=== PATIENT | female | born 1970 | race Caucasian/White ===

== ENCOUNTER 2016-10-29 11:50 | Emergency (ER) | payer OTHER ==
--- NOTE | 2016-10-29 13:06 | REP ---
AP view of the pelvis: Single view. History: Trauma. Findings: The bony pelvic ring is intact. No hip or pelvic fracture is seen. No sacral fracture is noted. Impression: Negative AP view of the pelvis. Signed by Trace Mclain MD 10/29/2016 04:21 P
--- NOTE | 2016-10-29 13:06 | REP ---
LUMBAR SPINE SERIES: Five views. HISTORY: Trauma. FINDINGS: Five views of the lumbar spine are compared with the prior study from January 12, 2007. Lumbar vertebral body heights are preserved. No fracture or collapse is seen. There is minimal disc space narrowing at L5-S1 and minimal discogenic spurring is seen at L3-4. Pedicles and posterior elements are intact. Psoas margins and flank stripes are intact. Sacrum and SI joints are intact. There is a calcification projecting in the right renal silhouettes measuring 4 mm in greatest diameter consistent with an intrarenal stone. There is vascular calcification in a normal caliber aorta. IMPRESSION: Minimal degenerative disc changes. Intrarenal nephrolithiasis suspected on the right. Clips in the right upper quadrant. No traumatic abnormality noted. Signed by Trace Mclain MD 10/29/2016 04:21 P
[2016-10-29] MEDS ORDERED: PERCOCET 5MG/325MG TAB As Ordered ONE (14:43)
--- NOTE | 2016-10-29 14:56 | EDDOCDS ---
Physician Documentation [facility] Name: Jaleesa Hidalgo Age: 46 yrs Sex: Female : 1970 Arrival Date: 10/29/2016 Time: 11:50 Bed Triage 3 Private MD: Jose Singleton G Disposition: 10/29/16 14:47 Discharged to Home/Self Care. Impression: Low back pain - Acute, Pain in right hip, Fall (on) (from) other stairs and steps. - Condition is Stable. - Discharge Instructions: Back Pain, Adult, [id number]-[id number], Hip Pain, Fall Prevention and Home Safety, Uaob-vq-[id number]. - Prescriptions for Ibuprofen 800 mg Oral Tablet - take 1 tablet by ORAL route every 8 hours As needed take with food; 30 tablet. Percocet 5- 325 mg Oral Tablet - take 1 tablet by ORAL route every 6 hours As needed MDD: 4 tabs; 10 tablet. Zanaflex 4 mg Oral Tablet - take 1 tablet by ORAL route At bedtime As needed Will cause drowsiness, do not take while driving/operating heavy machinery.; 20 tablet. Prednisone 20 mg Oral Tablet - take 3 tablet by ORAL route once daily for 5 days; 15 tablet. - Medication Reconciliation, Local Pharmacy Hours, Work Release Form - 3 day form. - Follow up: Jose Singleton; When: 1 - 2 days; Reason: Recheck today's complaints, Continuance of care. Follow up: Emergency Department; Reason: Worsening of conditions. Follow up: [facility]; When: Call to arrange an appointment; Reason: Further diagnostic work-up, Recheck today's complaints, Continuance of care. - Problem is new. - Symptoms have improved. Historical: - Allergies: Aspirin (Anaphylaxis); PENICILLINS (Anaphylaxis); - Home Meds: 1. atorvastatin 20 mg oral tab 1 tab once daily 2. venlafaxine 75 mg oral cp24 1 cap once daily 3. Fioricet 50-300-40 mg Oral cap 1 cap every 4 hours prn 4. divalproex 500 mg oral TbEC 1 tab 2 times per day - PMHx: Bronchitis; Hypercholesterolemia; - PSHx: ear surgery; Cholecystectomy; - Social history: Smoking status: Patient uses tobacco products, current every day smoker. No barriers to communication noted, The patient speaks fluent Dominican, Speaks appropriately for age. - Family history: Not pertinent. - : The pt / caregiver states he / she is not on anticoagulants. Home medication list is obtained from the patient. - Exposure Risk Screening:: None identified. 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 6 in. (167.64 cm) (R); Pain 8/10; 12:09 BP 106 / 52 Sitting; Pulse 87; srm 11:52 Body Mass Index 22.60 (63.50 kg, 167.64 cm) gr2 MDM: 12:14 Pelvis Ordered. EDMS 12:15 Spine. Lumbosacral, Complete Ordered. EDMS 13:22 [facility] Payment Agreement was scanned into [employer] and attached to record. 5 14:22 Financial registration complete. jp5 14:38 oxyCODONE-acetaminophen 5 mg-325 mg 1 tabs PO once ordered. ef1 14:38 Ice Pack ordered. ef1 Administered Medications: 14:44 Drug: oxyCODONE-acetaminophen 1 tabs [oxycodone-acetaminophen 5 mg-325 mg tablet (1 srm tabs)] Route: PO; Signatures: Dispatcher [employer] EDMS Maolu Wang RN RN srm Pat Dhillon PA-C PANany ef1 Samira Lara RN RN 1 Carley Garduno jp5 The chart was reviewed and I authenticate all verbal orders and agree with the evaluation and treatment provided.Corrections: (The following items were deleted from the chart) 14:44 12:04 PMHx: Thyroid problem; srm srm Attachments: 13:22 [facility] Payment Agreement jp5 MTDD
--- NOTE | 2016-10-29 14:56 | EDDOCDS ---
Nurse's Notes [facility] Name: aJleesa Hidalgo Age: 46 yrs Sex: Female : 1970 Arrival Date: 10/29/2016 Time: 11:50 Bed Triage 3 Private MD: Jose Singleton G Diagnosis: Low back pain-Acute;Pain in right hip;Fall (on) (from) other stairs and steps Presentation: 10/29 12:03 Presenting complaint: Patient states: fell down stairs last night- low back, pelvis and srm tail bone pain. walks without assist. couldn't sleep last night. no numbness or tingling down legs. Adult Sepsis Screening: The patient does not have new or worsening altered mentation. Patient's respiratory rate is less than 22. Systolic blood pressure is greater than 100. Patient has a qSOFA score of 0- Negative Sepsis Screen. Suicide/Homicide risk assessment- the patient denies having any suicidal and/or homicidal ideations and does not present with any other emotional, behavioral or mental health complaints. 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 Transition of care: patient was not received from another setting of care. 12:03 Acuity: CARMELO Level 3 srm 12:03 Method Of Arrival: Walkin/Carried/Asstd srm Triage Assessment: 12:04 General: Appears uncomfortable, Behavior is appropriate for age, cooperative. Pain: srm Pain currently is 10 out of 10 on a pain scale. HIV screening NA for this visit Offered previously. Musculoskeletal: Reports low back, tailbone and pelvis pain. 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 atorvastatin 20 mg oral tab 1 tab once daily 2. venlafaxine 75 mg oral cp24 1 cap once daily 3. Fioricet 50-300-40 mg Oral cap 1 cap every 4 hours prn 4. divalproex 500 mg oral TbEC 1 tab 2 times per day - PMHx: Bronchitis; Hypercholesterolemia; - PSHx: ear surgery; Cholecystectomy; - Social history: Smoking status: Patient uses tobacco products, current every day smoker. No barriers to communication noted, The patient speaks fluent Lao, Speaks appropriately for age. - Family history: Not pertinent. - : The pt / caregiver states he / she is not on anticoagulants. Home medication list is obtained from the patient. - Exposure Risk Screening:: None identified. Screenin:44 Screening information is obtained from the patient. Fall risk: No risks identified. srm Assistance ADL's: requires no assistance with activities of daily living. Abuse/DV Screen: The patient / caregiver reports he/she is: not in a situation that causes fear, pain or injury. Nutritional screening: No deficits noted. Advance Directives: Currently, there is no health care proxy. There is no active DNR order. home support is adequate. Assessment: 12:13 General: spoke with dr pritchett regarding pt's c/o - orders received. srm 14:45 General: Appears in no apparent distress, Behavior is appropriate for age, cooperative. srm Respiratory: No deficits noted. Musculoskeletal: Circulation, motion, and sensation intact Capillary refill < 3 seconds in bilateral fingers. Musculoskeletal: Reports low back pain, tailbone pain. 14:54 General: Appears in no apparent distress. Pain: Location: left hip. Respiratory: No hs1 deficits noted. Vital Signs: 11:52 BP 83 / 53; Pulse 89; Resp 18 S; Temp 97.7(O); Pulse Ox 96% on R/A; Weight 63.5 kg (R); gr2 Height 5 ft. 6 in. (167.64 cm) (R); Pain 8/10; 12:09 BP 106 / 52 Sitting; Pulse 87; srm 11:52 Body Mass Index 22.60 (63.50 kg, 167.64 cm) gr2 Vitals: 11:52 Log In Time: October 29, 2016 at 11:52. gr2 ED Course: 11:51 Patient visited by Joao Galeas. gr2 11:51 Jose Singleton is Private Physician. gr2 11:51 Patient moved to Waiting gr2 11:53 Patient visited by Joao Galeas. gr2 11:53 Patient moved to Pre RCE gr2 12:04 Triage Initiated srm 13:22 [facility] Payment Agreement was scanned into [employer] and attached to record. jp5 13:28 Pelvis Returned. EDMS 13:29 Spine. Lumbosacral, Complete Returned. EDMS 13:53 Patient moved to Triage 3 jrd 14:11 Pat Dhillon [facility]-C [facility] ef1 14:11 Jadon Pritchett MD is Attending Physician. ef1 14:11 Patient visited by Pat Dhillon PA-C. ef1 14:38 Patient visited by Pat Dhillon PA-C. ef1 14:44 The patient / caregiver is instructed regarding the plan of care and ED course. Patient srm has correct armband on for positive identification. 14:45 Patient visited by Malou Wang RN. [facility] 14:47 Jose Singleton is Referral Physician. ef1 14:47 [facility]. ef1 14:50 Patient moved to TR2 jrd 14:50 Patient moved to Triage 3 jrd 14:55 No IV's were initiated during this patient's visit. No procedures done that require hs1 assistance. Administered Medications: 14:44 Drug: oxyCODONE-acetaminophen 1 tabs [oxycodone-acetaminophen 5 mg-325 mg tablet (1 srm tabs)] Route: PO; Order Results: Radiology Order: Pelvis Test: Pelvis REASON FOR EXAMINATION: Trauma; AP view of the pelvis: Single view.; ; History: Trauma.; ; Findings: The bony pelvic ring is intact. No hip or pelvic fracture is seen.; No sacral fracture is noted.; ; Impression:; ; Negative AP view of the pelvis.; ; ; ; ; Unreviewed; Radiology Order: Spine. Lumbosacral, Complete Test: Spine. Lumbosacral, Complete REASON FOR EXAMINATION: Trauma; LUMBAR SPINE SERIES: Five views.; ; HISTORY: Trauma.; ; FINDINGS: Five views of the lumbar spine are compared with the prior study from; January 12, 2007. Lumbar vertebral body heights are preserved. No fracture or; collapse is seen. There is minimal disc space narrowing at L5-S1 and minimal; discogenic spurring is seen at L3-4. Pedicles and posterior elements are intact.; Psoas margins and flank stripes are intact. Sacrum and SI joints are intact.; There is a calcification projecting in the right renal silhouettes measuring 4 mm; in greatest diameter consistent with an intrarenal stone. There is vascular; calcification in a normal caliber aorta.; ; IMPRESSION:; Minimal degenerative disc changes. Intrarenal nephrolithiasis suspected on the; right. Clips in the right upper quadrant. No traumatic abnormality noted.; ; ; ; ; Unreviewed; Outcome: 14:47 Discharge ordered by Provider. ef1 14:54 The following High Risk Discharge criteria are identified: None. Discharged to home hs1 ambulatory, with friend. 14:54 Discharge Assessment: Patient awake, alert and oriented x 3. No cognitive and/or hs1 functional deficits noted. Patient verbalized understanding of disposition instructions. patient administered narcotics - yes. Pt provided with safe discharge. Condition: stable. Discharge instructions given to patient, Instructed on discharge instructions, follow up and referral plans. medication usage, Demonstrated understanding of instructions, medications, Pt was receptive of discharge instructions/ teaching. Prescriptions given X 4. No special radiology studies were completed. Property sent home with patient. 14:55 Patient left the ED. hs1 Signatures: Dispatcher [employer] EDMS Malou Wang, RN RN Pat Luna, PA-C PA-C ef1 Samira Lara RN RN hs1 Joao Galeas gr2 Leland Palma PCA CERTIFIED FRAUD EXAMINER d Carley Garduno jp5 Corrections: (The following items were deleted from the chart) 14:44 12:04 PMHx: Thyroid problem; srm srm MTDD
--- NOTE | 2016-10-31 15:56 | EDDOCDS ---
Physician Documentation [facility] Name: Jaleesa Hidalgo Age: 46 yrs Sex: Female : 1970 Arrival Date: 10/29/2016 Time: 11:50 Bed Triage 3 Private MD: Jose Singleton G Disposition: 10/29/16 14:47 Discharged to Home/Self Care. Impression: Low back pain - Acute, Pain in right hip, Fall (on) (from) other stairs and steps. - Condition is Stable. - Discharge Instructions: Back Pain, Adult, Qydo-mx-Gyte, Hip Pain, Fall Prevention and Home Safety, Mluz-ol-Aigt. - Prescriptions for Ibuprofen 800 mg Oral Tablet - take 1 tablet by ORAL route every 8 hours As needed take with food; 30 tablet. Percocet 5- 325 mg Oral Tablet - take 1 tablet by ORAL route every 6 hours As needed MDD: 4 tabs; 10 tablet. Zanaflex 4 mg Oral Tablet - take 1 tablet by ORAL route At bedtime As needed Will cause drowsiness, do not take while driving/operating heavy machinery.; 20 tablet. Prednisone 20 mg Oral Tablet - take 3 tablet by ORAL route once daily for 5 days; 15 tablet. - Medication Reconciliation, Local Pharmacy Hours, Work Release Form - 3 day form. - Follow up: Jose Singleton; When: 1 - 2 days; Reason: Recheck today's complaints, Continuance of care. Follow up: Emergency Department; Reason: Worsening of conditions. Follow up: [facility]; When: Call to arrange an appointment; Reason: Further diagnostic work-up, Recheck today's complaints, Continuance of care. - Problem is new. - Symptoms have improved. Historical: - Allergies: Aspirin (Anaphylaxis); PENICILLINS (Anaphylaxis); - Home Meds: 1. atorvastatin 20 mg oral tab 1 tab once daily 2. venlafaxine 75 mg oral cp24 1 cap once daily 3. Fioricet 50-300-40 mg Oral cap 1 cap every 4 hours prn 4. divalproex 500 mg oral TbEC 1 tab 2 times per day - PMHx: Bronchitis; Hypercholesterolemia; - PSHx: ear surgery; Cholecystectomy; - Social history: Smoking status: Patient uses tobacco products, current every day smoker. No barriers to communication noted, The patient speaks fluent Mauritian, Speaks appropriately for age. - Family history: Not pertinent. - : The pt / caregiver states he / she is not on anticoagulants. Home medication list is obtained from the patient. - Exposure Risk Screening:: None identified. 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 6 in. (167.64 cm) (R); Pain 8/10; 12:09 BP 106 / 52 Sitting; Pulse 87; srm 11:52 Body Mass Index 22.60 (63.50 kg, 167.64 cm) gr2 MDM: 12:14 Pelvis Ordered. EDMS 12:15 Spine. Lumbosacral, Complete Ordered. EDMS 13:22 [facility] Payment Agreement was scanned into [employer] and attached to record. 5 14:22 Financial registration complete. jp5 14:38 oxyCODONE-acetaminophen 5 mg-325 mg 1 tabs PO once ordered. ef1 14:38 Ice Pack ordered. ef1 15:55 T-Sheet-- Draft Copy was scanned into [employer] and attached to record. klr 10/30 10:16 Radiology Report was scanned into [employer] and attached to record. gb Administered Medications: 10/29 14:44 Drug: oxyCODONE-acetaminophen 1 tabs [oxycodone-acetaminophen 5 mg-325 mg tablet (1 srm tabs)] Route: PO; Signatures: Dispatcher [employer] EDMS Malou Wang, RN RN srm Criss Prince, Reg Reg gb Pat Dhillon, PA-C PA-C ef1 Samira Lara, JONELLE RN hs1 Carley Garduno 5 Nisha Valenzuela The chart was reviewed and I authenticate all verbal orders and agree with the evaluation and treatment provided.Corrections: (The following items were deleted from the chart) 14:44 12:04 PMHx: Thyroid problem; srm srm Attachments: 13:22 [facility] Payment Agreement jp5 15:55 T-Sheet-- Draft Copy klr Chart Complete MTDD
--- NOTE | 2016-10-31 15:56 | EDDOCDS ---
Nurse's Notes [facility] Name: Jaleesa Hidalgo Age: 46 yrs Sex: Female : 1970 Arrival Date: 10/29/2016 Time: 11:50 Bed Triage 3 Private MD: Jose Singleton G Diagnosis: Low back pain-Acute;Pain in right hip;Fall (on) (from) other stairs and steps Presentation: 10/29 12:03 Presenting complaint: Patient states: fell down stairs last night- low back, pelvis and srm tail bone pain. walks without assist. couldn't sleep last night. no numbness or tingling down legs. Adult Sepsis Screening: The patient does not have new or worsening altered mentation. Patient's respiratory rate is less than 22. Systolic blood pressure is greater than 100. Patient has a qSOFA score of 0- Negative Sepsis Screen. Suicide/Homicide risk assessment- the patient denies having any suicidal and/or homicidal ideations and does not present with any other emotional, behavioral or mental health complaints. 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 Transition of care: patient was not received from another setting of care. 12:03 Acuity: CARMELO Level 3 srm 12:03 Method Of Arrival: Walkin/Carried/Asstd srm Triage Assessment: 12:04 General: Appears uncomfortable, Behavior is appropriate for age, cooperative. Pain: srm Pain currently is 10 out of 10 on a pain scale. HIV screening NA for this visit Offered previously. Musculoskeletal: Reports low back, tailbone and pelvis pain. 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 atorvastatin 20 mg oral tab 1 tab once daily 2. venlafaxine 75 mg oral cp24 1 cap once daily 3. Fioricet 50-300-40 mg Oral cap 1 cap every 4 hours prn 4. divalproex 500 mg oral TbEC 1 tab 2 times per day - PMHx: Bronchitis; Hypercholesterolemia; - PSHx: ear surgery; Cholecystectomy; - Social history: Smoking status: Patient uses tobacco products, current every day smoker. No barriers to communication noted, The patient speaks fluent Vietnamese, Speaks appropriately for age. - Family history: Not pertinent. - : The pt / caregiver states he / she is not on anticoagulants. Home medication list is obtained from the patient. - Exposure Risk Screening:: None identified. Screenin:44 Screening information is obtained from the patient. Fall risk: No risks identified. srm Assistance ADL's: requires no assistance with activities of daily living. Abuse/DV Screen: The patient / caregiver reports he/she is: not in a situation that causes fear, pain or injury. Nutritional screening: No deficits noted. Advance Directives: Currently, there is no health care proxy. There is no active DNR order. home support is adequate. Assessment: 12:13 General: spoke with dr pritchett regarding pt's c/o - orders received. srm 14:45 General: Appears in no apparent distress, Behavior is appropriate for age, cooperative. srm Respiratory: No deficits noted. Musculoskeletal: Circulation, motion, and sensation intact Capillary refill < 3 seconds in bilateral fingers. Musculoskeletal: Reports low back pain, tailbone pain. 14:54 General: Appears in no apparent distress. Pain: Location: left hip. Respiratory: No hs1 deficits noted. Vital Signs: 11:52 BP 83 / 53; Pulse 89; Resp 18 S; Temp 97.7(O); Pulse Ox 96% on R/A; Weight 63.5 kg (R); gr2 Height 5 ft. 6 in. (167.64 cm) (R); Pain 8/10; 12:09 BP 106 / 52 Sitting; Pulse 87; srm 11:52 Body Mass Index 22.60 (63.50 kg, 167.64 cm) gr2 Vitals: 11:52 Log In Time: October 29, 2016 at 11:52. gr2 ED Course: 11:51 Patient visited by Joao Galeas. gr2 11:51 Jose Singleton is Private Physician. gr2 11:51 Patient moved to Waiting gr2 11:53 Patient visited by Joao Galeas. gr2 11:53 Patient moved to Pre RCE gr2 12:04 Triage Initiated srm 13:22 [facility] Payment Agreement was scanned into [employer] and attached to record. jp5 13:28 Pelvis Returned. EDMS 13:29 Spine. Lumbosacral, Complete Returned. EDMS 13:53 Patient moved to Triage 3 jrd 14:11 Pat Dhillon PA-C is [facility]. ef1 14:11 Jadon Pritchett MD is Attending Physician. ef1 14:11 Patient visited by Pat Dhillon PA-C. ef1 14:38 Patient visited by Pat Dhillon PA-C. ef1 14:44 The patient / caregiver is instructed regarding the plan of care and ED course. Patient srm has correct armband on for positive identification. 14:45 Patient visited by Malou Wang RN. srm 14:47 Jose Singleton is Referral Physician. ef1 14:47 [facility]. ef1 14:50 Patient moved to TR2 jrd 14:50 Patient moved to Triage 3 jrd 14:55 No IV's were initiated during this patient's visit. No procedures done that require hs1 assistance. 15:55 T-Sheet-- Draft Copy was scanned into [employer] and attached to record. r 10/30 10:16 Radiology Report was scanned into [employer] and attached to record. gb Administered Medications: 10/29 14:44 Drug: oxyCODONE-acetaminophen 1 tabs [oxycodone-acetaminophen 5 mg-325 mg tablet (1 srm tabs)] Route: PO; Order Results: Radiology Order: Pelvis Test: Pelvis REASON FOR EXAMINATION: Trauma; AP view of the pelvis: Single view.; ; History: Trauma.; ; Findings: The bony pelvic ring is intact. No hip or pelvic fracture is seen.; No sacral fracture is noted.; ; Impression:; ; Negative AP view of the pelvis.; ; ; Signed by; Trace Mclain MD 10/29/2016 04:21 P; Radiology Order: Spine. Lumbosacral, Complete Test: Spine. Lumbosacral, Complete REASON FOR EXAMINATION: Trauma; LUMBAR SPINE SERIES: Five views.; ; HISTORY: Trauma.; ; FINDINGS: Five views of the lumbar spine are compared with the prior study from; January 12, 2007. Lumbar vertebral body heights are preserved. No fracture or; collapse is seen. There is minimal disc space narrowing at L5-S1 and minimal; discogenic spurring is seen at L3-4. Pedicles and posterior elements are intact.; Psoas margins and flank stripes are intact. Sacrum and SI joints are intact.; There is a calcification projecting in the right renal silhouettes measuring 4 mm; in greatest diameter consistent with an intrarenal stone. There is vascular; calcification in a normal caliber aorta.; ; IMPRESSION: Minimal degenerative disc changes. Intrarenal nephrolithiasis; suspected on the right. Clips in the right upper quadrant. No traumatic; abnormality noted.; ; ; Signed by; Trace Mclain MD 10/29/2016 04:21 P; Outcome: 14:47 Discharge ordered by Provider. ef1 14:54 The following High Risk Discharge criteria are identified: None. Discharged to home hs1 ambulatory, with friend. 14:54 Discharge Assessment: Patient awake, alert and oriented x 3. No cognitive and/or hs1 functional deficits noted. Patient verbalized understanding of disposition instructions. patient administered narcotics - yes. Pt provided with safe discharge. Condition: stable. Discharge instructions given to patient, Instructed on discharge instructions, follow up and referral plans. medication usage, Demonstrated understanding of instructions, medications, Pt was receptive of discharge instructions/ teaching. Prescriptions given X 4. No special radiology studies were completed. Property sent home with patient. 14:55 Patient left the ED. hs1 Signatures: Dispatcher [employer] EDMS Malou Wang, RN RN srm Cirss Prince, Reg Reg Pat Crystal, PA-C PA-C ef1 Samira Lara, RN RN hs1 Joao Galeas gr2 Leland Palma PCA PCA jrd Price, Jennalee jp5 Redder, Kathie klr Corrections: (The following items were deleted from the chart) 14:44 12:04 PMHx: Thyroid problem; srm srm Chart Complete MTDD
--- NOTE | 2016-10-31 15:56 | EDDOCDS ---
Physician Documentation [facility] Name: Jaleesa Hidalgo Age: 46 yrs Sex: Female : 1970 Arrival Date: 10/29/2016 Time: 11:50 Bed Triage 3 Private MD: Jose Singleton G Disposition: 10/29/16 14:47 Discharged to Home/Self Care. Impression: Low back pain - Acute, Pain in right hip, Fall (on) (from) other stairs and steps. - Condition is Stable. - Discharge Instructions: Back Pain, Adult, [id number], Hip Pain, Fall Prevention and Home Safety, Ixyn-go-Evww. - Prescriptions for Ibuprofen 800 mg Oral Tablet - take 1 tablet by ORAL route every 8 hours As needed take with food; 30 tablet. Percocet 5- 325 mg Oral Tablet - take 1 tablet by ORAL route every 6 hours As needed MDD: 4 tabs; 10 tablet. Zanaflex 4 mg Oral Tablet - take 1 tablet by ORAL route At bedtime As needed Will cause drowsiness, do not take while driving/operating heavy machinery.; 20 tablet. Prednisone 20 mg Oral Tablet - take 3 tablet by ORAL route once daily for 5 days; 15 tablet. - Medication Reconciliation, Local Pharmacy Hours, Work Release Form - 3 day form. - Follow up: Jose Singleton; When: 1 - 2 days; Reason: Recheck today's complaints, Continuance of care. Follow up: Emergency Department; Reason: Worsening of conditions. Follow up: [facility]; When: Call to arrange an appointment; Reason: Further diagnostic work-up, Recheck today's complaints, Continuance of care. - Problem is new. - Symptoms have improved. Historical: - Allergies: Aspirin (Anaphylaxis); PENICILLINS (Anaphylaxis); - Home Meds: 1. atorvastatin 20 mg oral tab 1 tab once daily 2. venlafaxine 75 mg oral cp24 1 cap once daily 3. Fioricet 50-300-40 mg Oral cap 1 cap every 4 hours prn 4. divalproex 500 mg oral TbEC 1 tab 2 times per day - PMHx: Bronchitis; Hypercholesterolemia; - PSHx: ear surgery; Cholecystectomy; - Social history: Smoking status: Patient uses tobacco products, current every day smoker. No barriers to communication noted, The patient speaks fluent Afghan, Speaks appropriately for age. - Family history: Not pertinent. - : The pt / caregiver states he / she is not on anticoagulants. Home medication list is obtained from the patient. - Exposure Risk Screening:: None identified. 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 6 in. (167.64 cm) (R); Pain 8/10; 12:09 BP 106 / 52 Sitting; Pulse 87; srm 11:52 Body Mass Index 22.60 (63.50 kg, 167.64 cm) gr2 MDM: 12:14 Pelvis Ordered. EDMS 12:15 Spine. Lumbosacral, Complete Ordered. EDMS 13:22 [facility] Payment Agreement was scanned into [employer] and attached to record. 5 14:22 Financial registration complete. jp5 14:38 oxyCODONE-acetaminophen 5 mg-325 mg 1 tabs PO once ordered. ef1 14:38 Ice Pack ordered. ef1 15:55 T-Sheet-- Draft Copy was scanned into [employer] and attached to record. klr 10/30 10:16 Radiology Report was scanned into [employer] and attached to record. gb Administered Medications: 10/29 14:44 Drug: oxyCODONE-acetaminophen 1 tabs [oxycodone-acetaminophen 5 mg-325 mg tablet (1 srm tabs)] Route: PO; Signatures: Dispatcher [employer] EDMS Malou Wang, RN RN srm Criss Prince, Reg Reg gb Pat Dhillon, PA-C PA-C ef1 Samira Lara, JONELLE RN hs1 Carley Garduno 5 Nisha Valenzuela The chart was reviewed and I authenticate all verbal orders and agree with the evaluation and treatment provided.Corrections: (The following items were deleted from the chart) 14:44 12:04 PMHx: Thyroid problem; srm srm Attachments: 13:22 [facility] Payment Agreement jp5 15:55 T-Sheet-- Draft Copy klr Chart Complete MTDD
== END 2016-10-29 14:55 | disposition home or self-care (01) ==
LOC: M ED 11:50
DX: M54.5 Low back pain (principal); M25.551 Pain in right hip; J40 Bronchitis, not specified as acute or chronic; E78.00 Pure hypercholesterolemia, unspecified; F17.210 Nicotine dependence, cigarettes, uncomplicated; Z79.899 Other long term (current) drug therapy; Z88.6 Allergy status to analgesic agent; Z88.0 Allergy status to penicillin

== ENCOUNTER 2017-03-03 22:06 | Emergency (ER) | payer OTHER ==
[~2017-03-03] VITALS: Ht 167.6 cm; Wt 64.4 kg
[2017-03-03 22:06] VITALS: BP 104/49
[2017-03-03] MEDS ORDERED: VENL75CA47 PO (22:21)
[2017-03-03] MEDS ORDERED: ATOR1TAB21 PO (22:21)
[2017-03-03] MEDS ORDERED: ESTR625TA PO (22:21)
[2017-03-04] MEDS ORDERED: ROBA500T PO (00:49)
[2017-03-04] MEDS ORDERED: IBUP80TA PO (00:49)
[2017-03-04] MEDS ORDERED: IBUPROFEN 800 MG TAB PO ONE (01:00)
[2017-03-04] MEDS ORDERED: METHOCARBAMOL 500 MG TAB PO ONE (01:00)
== END 2017-03-04 00:56 | disposition home or self-care (01) ==
LOC: M ED 23:29
DX: S39.012A Strain of muscle, fascia and tendon of lower back, initial encounter (principal); X50.9XXA Other and unspecified overexertion or strenuous movements or postures, initial encounter; Y92.89 Other specified places as the place of occurrence of the external cause; Y93.89 Activity, other specified; Y99.8 Other external cause status; E78.9 Disorder of lipoprotein metabolism, unspecified; F17.210 Nicotine dependence, cigarettes, uncomplicated; Z79.899 Other long term (current) drug therapy; Z88.0 Allergy status to penicillin; Z88.6 Allergy status to analgesic agent

== ENCOUNTER 2017-06-10 19:32 | Emergency (ER) | payer OTHER, SELFPAY ==
[~2017-06-10] VITALS: Ht 167.6 cm; Wt 69.0 kg
[~2017-06-10 19:32] MED LIST: ATOR1TAB21 PO; ESTR625TA PO; IBUP80TA PO; ROBA500T PO; VENL75CA47 PO
[2017-06-10] MEDS ORDERED: CHAN1PAK9 (19:51)
[2017-06-10] MEDS ORDERED: ACETAMINOPHEN 325 MG TAB PO ONE (23:30)
[2017-06-10] MEDS ORDERED: ONDANSETRON 4 MG ORAL DISINTEGRATING TAB (S0181) PO ONE (23:30)
[2017-06-11] MEDS ORDERED: ZOFR4TAB3 PO (00:01)
[2017-06-11 00:10] VITALS: BP 118/65
--- NOTE | 2017-06-11 07:34 | REP ---
Clinical: Fever . Comparison: 09/10/2016 . Technique: PA and lateral. Findings: The mediastinum and cardiac silhouette are normal. The lung acevedo are clear and without acute consolidation, effusion, or pneumothorax. The skeletal structures are intact and normal. Impression: 1. No acute cardiopulmonary process. Signed by Terry Mcginnis MD 06/11/2017 07:25 A
== END 2017-06-11 00:11 | disposition home or self-care (01) ==
LOC: M ED 19:32
DX: B34.9 Viral infection, unspecified (principal); F33.9 Major depressive disorder, recurrent, unspecified; F17.210 Nicotine dependence, cigarettes, uncomplicated; Z79.899 Other long term (current) drug therapy; Z88.0 Allergy status to penicillin; Z88.8 Allergy status to other drugs, medicaments and biological substances

== ENCOUNTER → 2017-10-29 | Outpatient (REF) | payer MEDICAID ==
[2017-10-29 23:02] LABS: INFLUENZA A AMPLIFICATION NEGATIVE (NEGATIVE); INFLUENZA B AMPLIFICATION NEGATIVE (NEGATIVE); RSV AMPLIFICATION NEGATIVE (NEGATIVE)
== END ==
LOC: M LAB REF 09:41
DX: J11.1 Influenza due to unidentified influenza virus with other respiratory manifestations (principal)

== ENCOUNTER → 2018-08-07 | Outpatient (REF) | payer OTHER | LOC: M LAB REF 16:41 | DX: J02.9 Acute pharyngitis, unspecified (principal) ==

== ENCOUNTER → 2018-11-26 | Outpatient (REF) | payer OTHER ==
[~2018-11-26] MED LIST changes: +CHAN1PAK13; +ZOFR4TAB14 PO
== END ==
LOC: M SFHCLERA 12:13
PROVIDERS: ATTEND Nurse Practitioner Family
DX: R53.81 Other malaise (principal)

== ENCOUNTER 2019-06-29 11:33 | Emergency (ER) | payer MEDICAID, OTHER ==
[~2019-06-29] VITALS: Ht 167.6 cm; Wt 66.8 kg
[2019-06-29 13:08] LABS: HEMATOCRIT 41.3 % (36.0-47.0); HEMOGLOBIN 13.7 g/dl (12.0-15.5); MEAN CORPUSCULAR HEMOGLOBIN 32.2 pg (27.0-33.0); MEAN CORPUSCULAR HGB CONC 33.2 g/dl (32.0-36.5); MEAN CORPUSCULAR VOLUME 96.9 fl (80.0-96.0); PLATELET COUNT, AUTOMATED 440 10^3/uL (150-450); RED BLOOD COUNT 4.26 10^6/uL (4.00-5.40); WHITE BLOOD COUNT 11.4 10^3/uL (4.0-10.0)
[2019-06-29] MEDS ORDERED: IPRATROPIUM 0.5MG/ALBUTEROL 2.5MG INH SOL UD 3ML (DUONEB)(J7620) NEB ONE (13:15)
--- NOTE | 2019-06-29 13:27 | REP ---
CHEST, TWO VIEWS: There is no evidence of acute infiltrate. No pleural effusion is seen. The heart is normal in size. The mediastinal silhouette is unremarkable. The visualized osseous structures are intact. IMPRESSION: No acute pulmonary disease. Electronically Signed by Roberto Carlos Steele MD 06/30/2019 04:16 P
[2019-06-29 13:28] LABS: BLOOD UREA NITROGEN 8 MG/DL (7-18); CALCIUM LEVEL 9.4 MG/DL (8.5-10.1); CARBON DIOXIDE LEVEL 28 MEQ/L (21-32); CHLORIDE LEVEL 107 MEQ/L (98-107); CREATININE FOR GFR 0.62 MG/DL (0.55-1.30); GLOMERULAR FILTRATION RATE > 60.0 (>58); GLUCOSE, FASTING 92 MG/DL (70-100); POTASSIUM SERUM 4.5 MEQ/L (3.5-5.1); SODIUM LEVEL 141 MEQ/L (136-145)
[2019-06-29 13:34] LABS: INFLUENZA A AMPLIFICATION NEGATIVE (NEGATIVE); INFLUENZA B AMPLIFICATION NEGATIVE (NEGATIVE)
[2019-06-29] MEDS ORDERED: PROAAER10 INH (13:52)
[2019-06-29 14:05] VITALS: BP 109/62
== END 2019-06-29 14:17 | disposition home or self-care (01) ==
LOC: M ED 11:33
DX: B34.9 Viral infection, unspecified (principal); F17.200 Nicotine dependence, unspecified, uncomplicated; Z88.0 Allergy status to penicillin; Z88.6 Allergy status to analgesic agent; Z79.899 Other long term (current) drug therapy

== ENCOUNTER → 2019-10-16 | Outpatient (REF) | payer OTHER ==
[~2019-10-16] MED LIST changes: +PROAAER10 INH
== END ==
LOC: M LAB REF 09:10
PROVIDERS: ATTEND Nurse Practitioner Family
DX: R50.9 Fever, unspecified (principal)

== ENCOUNTER → 2019-12-29 | Outpatient (REF) | payer OTHER | LOC: M LAB REF 15:32 | PROVIDERS: ATTEND Physician Assistant | DX: M79.7 Fibromyalgia (principal); R05 Cough ==

== ENCOUNTER 2020-07-22 13:21 | Emergency (ER) | payer OTHER ==
[~2020-07-22] VITALS: Ht 167.6 cm; Wt 64.8 kg
[2020-07-22 14:22] LABS: BASO # 0.1 10^3/uL (0.0-0.2); BASO % 0.5 % (0.0-1.0); EOS # 0.4 10^3/uL (0.0-0.5); EOS % 3.4 % (0.0-3.0); HEMATOCRIT 38.7 % (36.0-47.0); HEMOGLOBIN 12.8 g/dl (12.0-15.5); LYMPH # 2.7 10^3/uL (1.5-5.0); LYMPH % 24.3 % (24.0-44.0); MEAN CORPUSCULAR HEMOGLOBIN 32.2 pg (27.0-33.0); MEAN CORPUSCULAR HGB CONC 33.1 g/dl (32.0-36.5); MEAN CORPUSCULAR VOLUME 97.2 fl (80.0-96.0); MONO % 8.7 % (0.0-5.0); NEUTROPHILS % 62.6 % (36.0-66.0); PLATELET COUNT, AUTOMATED 420 10^3/uL (150-450); RED BLOOD COUNT 3.98 10^6/uL (4.00-5.40); WHITE BLOOD COUNT 11.2 10^3/uL (4.0-10.0)
[2020-07-22 14:47] LABS: ALBUMIN 3.5 GM/DL (3.2-5.2); ALT/SGPT 19 U/L (12-78); BILIRUBIN,DIRECT < 0.1 MG/DL (0.0-0.2); BILIRUBIN,TOTAL 0.3 MG/DL (0.2-1.0); BLOOD UREA NITROGEN 7 MG/DL (7-18); CALCIUM LEVEL 8.8 MG/DL (8.5-10.1); CARBON DIOXIDE LEVEL 25 MEQ/L (21-32); CHLORIDE LEVEL 111 MEQ/L (98-107); CREATININE FOR GFR 0.56 MG/DL (0.55-1.30); GLOMERULAR FILTRATION RATE > 60.0 (>58); GLUCOSE, FASTING 102 MG/DL (70-100); LIPASE 144 U/L (73-393); POTASSIUM SERUM 3.7 MEQ/L (3.5-5.1); SODIUM LEVEL 142 MEQ/L (136-145); TOTAL PROTEIN 7.1 GM/DL (6.4-8.2)
--- NOTE | 2020-07-22 14:59 | REP ---
INDICATION: pelvic pain/pressure, postmenopausal bleeding COMPARISON: None. TECHNIQUE: Transabdominal pelvic ultrasound followed by transvaginal examination for better evaluation of the endometrium and adnexa with color Doppler evaluation of the ovaries. FINDINGS: Bladder is unremarkable and measures 9.9 x 4.9 x 10.1 cm. Normal anteverted uterus measures 4.9 x 2.6 x 3.3 cm. The endometrial complex measures 4.0 mm thickness. Incidental 3 mm calcification adjacent to the endometrium is likely chronic. Ovaries are not identified on either transabdominal or transvaginal imaging due to excessive bowel gas. No pelvic fluid or adnexal mass lesion. IMPRESSION: Normal uterus. Ovaries not visualized. No pelvic fluid. <Electronically signed by Terry Mcginnis > 07/22/20 [id number]
[2020-07-22] MEDS ORDERED: ACETAMINOPHEN 500 MG TAB PO ONE (15:30)
[2020-07-22 15:48] LABS: CHLAMYDIA DNA AMPLIFICATION NEGATIVE (NEGATIVE); GC DNA AMPLIFICATION NEGATIVE (NEGATIVE)
[2020-07-22] MEDS ORDERED: FLAG500T PO (16:16)
[2020-07-22] MEDS ORDERED: VALA1TAB5 PO (16:16)
[2020-07-22] MEDS ORDERED: MACR100C43 PO (16:22)
[2020-07-22 16:39] VITALS: BP 126/59
[2020-07-26 15:07] LABS: HSV TYPE I IgG SPECIFIC <0.91 index (0.00-0.90); HSV TYPE I IgM AB <1:10 titer (<1:10); HSV TYPE II IgG SPECIFIC <0.91 index (0.00-0.90); HSV TYPE II IgM ABY <1:10 titer (<1:10)
== END 2020-07-22 16:41 | disposition home or self-care (01) ==
LOC: M ED 13:21
DX: N39.0 Urinary tract infection, site not specified (principal); N76.0 Acute vaginitis; N93.9 Abnormal uterine and vaginal bleeding, unspecified; J44.9 Chronic obstructive pulmonary disease, unspecified; F32.9 Major depressive disorder, single episode, unspecified; M06.9 Rheumatoid arthritis, unspecified; R51.9 Headache, unspecified; E78.5 Hyperlipidemia, unspecified; Z87.440 Personal history of urinary (tract) infections; F17.210 Nicotine dependence, cigarettes, uncomplicated; Z88.0 Allergy status to penicillin; Z88.6 Allergy status to analgesic agent

== ENCOUNTER → 2020-07-31 | Outpatient (REF) | payer OTHER ==
[~2020-07-31] MED LIST changes: +FLAG500T PO; +MACR100C43 PO; +VALA1TAB5 PO
== END ==
LOC: M SFHCWAGY 12:50
PROVIDERS: ATTEND Obstetrics & Gynecology
DX: Z12.4 Encounter for screening for malignant neoplasm of cervix (principal)

== ENCOUNTER 2020-09-05 16:51 | Emergency (ER) | payer OTHER ==
[~2020-09-05] VITALS: Ht 167.6 cm; Wt 68.0 kg
--- NOTE | 2020-09-05 17:31 | REP ---
INDICATION: nail in thumb COMPARISON: None. TECHNIQUE: Six views left 1st digit performed. FINDINGS: There is no evidence of acute fracture, dislocation, or intrinsic bone disease.A metallic nail is seen in the soft tissues just medial to the 1st distal phalanx. Distal phalanx itself is intact. The length of the nail is approximately 35 mm. IMPRESSION: No fracture or dislocation. Metallic nail in the soft tissues of the 1st digit <Electronically signed by Roberto Carlos Steele > 09/05/20 [id number]
[2020-09-05] MEDS ORDERED: PERCOCET 5MG/325MG TAB PO ONE (18:15)
[2020-09-05 18:35] VITALS: BP 115/52
[2020-09-05] MEDS ORDERED: LIDOCAINE 1% MDV 20ML VIAL SC ONE (18:45)
[2020-09-05] MEDS ORDERED: CLINDAMYCIN 150MG CAPSULE PO ONE (19:00)
[2020-09-05] MEDS ORDERED: CLEO300C2 PO (19:01)
== END 2020-09-05 19:19 | disposition home or self-care (01) ==
LOC: M ED 16:51
DX: S60.352A Superficial foreign body of left thumb, initial encounter (principal); W29.4XXA Contact with nail gun, initial encounter; Y92.89 Other specified places as the place of occurrence of the external cause; Y93.89 Activity, other specified; Y99.0 Civilian activity done for income or pay; R51.9 Headache, unspecified; J44.9 Chronic obstructive pulmonary disease, unspecified; E78.5 Hyperlipidemia, unspecified; Z88.0 Allergy status to penicillin; Z88.6 Allergy status to analgesic agent

== ENCOUNTER → 2020-09-07 | Outpatient (REF) | payer OTHER ==
[~2020-09-07] MED LIST changes: +CLEO300C2 PO
[2020-09-07 14:09] LABS: APPEARANCE, URINE CLEAR (CLEAR); BACTERIA, URINE AUTO NEGATIVE (NEGATIVE); BILIRUBIN, URINE AUTO NEGATIVE (NEGATIVE); BLOOD, URINE BLOOD 1+ (NEGATIVE); COLOR, URINE STRAW (YELLOW); GLUCOSE, URINE (UA) AUTO NEGATIVE (NEGATIVE); KETONE, URINE AUTO NEGATIVE (NEGATIVE); LEUKOCYTE ESTERASE, URINE AUTO NEGATIVE (NEGATIVE); NITRITE, URINE AUTO NEGATIVE (NEGATIVE); PROTEIN, URINE AUTO NEGATIVE (NEGATIVE); RBC, URINE AUTO 0 /HPF (0-3); SPECIFIC GRAVITY URINE AUTO 1.006 (1.002-1.035); SQUAMOUS EPITHELIAL CELL UR AU 0 /HPF (0-6); UROBILINOGEN, URINE AUTO 0.2 mg/dL (0.0-2.0); WBC, URINE AUTO 0 /HPF (0-3)
== END ==
LOC: M SMT 13:23
PROVIDERS: ATTEND Nurse Practitioner Women's Health
DX: N39.0 Urinary tract infection, site not specified (principal)

== ENCOUNTER → 2021-01-10 | Outpatient (REF) | payer OTHER ==
[2021-01-10 18:16] LABS: BASO # 0.1 10^3/uL (0.0-0.2); BASO % 0.7 % (0.0-1.0); EOS # 0.4 10^3/uL (0.0-0.5); EOS % 4.1 % (0.0-3.0); HEMOGLOBIN 12.6 g/dl (12.0-15.5); LYMPH # 2.8 10^3/uL (1.5-5.0); LYMPH % 31.8 % (24.0-44.0); MEAN CORPUSCULAR HEMOGLOBIN 32.2 pg (27.0-33.0); MEAN CORPUSCULAR HGB CONC 33.2 g/dl (32.0-36.5); MEAN CORPUSCULAR VOLUME 97.2 fl (80.0-96.0); MONO # 0.8 10^3/uL (0.0-0.8); NEUTROPHILS # 4.8 10^3/uL (1.5-8.5); NEUTROPHILS % 54.2 % (36.0-66.0); PLATELET COUNT, AUTOMATED 380 10^3/uL (150-450); RED BLOOD COUNT 3.91 10^6/uL (4.00-5.40); WHITE BLOOD COUNT 8.8 10^3/uL (4.0-10.0)
[2021-01-10 20:40] LABS: ALBUMIN 3.9 GM/DL (3.2-5.2); ALT/SGPT 22 U/L (12-78); BILIRUBIN,TOTAL 0.3 MG/DL (0.2-1.0); BLOOD UREA NITROGEN 12 MG/DL (7-18); CALCIUM LEVEL 9.3 MG/DL (8.5-10.1); CARBON DIOXIDE LEVEL 21 MEQ/L (21-32); CHLORIDE LEVEL 111 MEQ/L (98-107); CHOLESTEROL LEVEL 186 MG/DL (<200); CHOLESTEROL RISK RATIO 4.769 (<5); CREATININE FOR GFR 0.47 MG/DL (0.55-1.30); GLOMERULAR FILTRATION RATE > 60.0 (>58); GLUCOSE, FASTING 95 MG/DL (70-100); HDL CHOLESTEROL 39 MG/DL (>40); LDL CHOLESTEROL 129 MG/DL (<100); NON-HDL-C 147 MG/DL; POTASSIUM SERUM 4.2 MEQ/L (3.5-5.1); SODIUM LEVEL 142 MEQ/L (136-145); THYROID STIMULATING HORMONE 0.911 uIU/ML (0.358-3.740); TOTAL PROTEIN 6.8 GM/DL (6.4-8.2); TRIGLYCERIDES LEVEL 89 MG/DL (<150)
[2021-01-11 13:08] LABS: TOTAL 25(OH) VITAMIN D 12.3 NG/ML (30.0-100.0)
== END ==
LOC: M LAB REF 16:37
PROVIDERS: ATTEND Pediatrics
DX: E78.5 Hyperlipidemia, unspecified (principal); Z78.0 Asymptomatic menopausal state; Z76.89 Persons encountering health services in other specified circumstances

== ENCOUNTER → 2021-04-21 | Outpatient (CLI) | payer OTHER ==
[~2021-04-21] MED LIST changes: +FLUTISP; +ONDA8TAB10; +RIZA10TA2
== END ==
LOC: M LABSMTC 09:17
PROVIDERS: ATTEND Anesthesiology
DX: Z01.818 Encounter for other preprocedural examination (principal); Z11.52 Encounter for screening for COVID-19

== ENCOUNTER 2021-04-26 09:07 | Day surgery (SDC) | payer OTHER ==
[~2021-04-26] VITALS: Ht 165.1 cm; Wt 61.7 kg
[~2021-04-26 09:07] MED LIST changes: +NS 1,000 ML IV ONE
[2021-04-26] MEDS ORDERED: NAPR220C14 PO (09:42)
--- NOTE | 2021-04-26 10:38 | ROOR ---
Patient Name: Jaleesa Hidalgo Procedure Date: 04/26/2021 10:16 AM Date of : 1970 Age: 51 Room: [facility] Gender: Female Note Status: Finalized Procedure: Colonoscopy Indications: Screening for colorectal malignant neoplasm Providers: Chapito Chávez Jr, MD Referring MD: Kati Moreno Md Requesting Provider: Medicines: Propofol per Anesthesia Complications: No immediate complications. Procedure: Pre-Anesthesia Assessment: - Prior to the procedure, a History and Physical was performed, and patient medications and allergies were reviewed. The patient is competent. The risks and benefits of the procedure and the sedation options and risks were discussed with the patient. All questions were answered and informed consent was obtained. Patient identification and proposed procedure were verified by the physician and the nurse in the pre-procedure area and in the procedure room. Mental Status Examination: alert and oriented. Airway Examination: normal oropharyngeal airway and neck mobility. Respiratory Examination: clear to auscultation. CV Examination: normal. ASA Grade Assessment: II - A patient with mild systemic disease. After reviewing the risks and benefits, the patient was deemed in satisfactory condition to undergo the procedure. The anesthesia plan was to use moderate sedation / analgesia (conscious sedation). Immediately prior to administration of medications, the patient was re-assessed for adequacy to receive sedatives. The heart rate, respiratory rate, oxygen saturations, blood pressure, adequacy of pulmonary ventilation, and response to care were monitored throughout the procedure. The physical status of the patient was re-assessed after the procedure. The Colonoscope was introduced through the anus and advanced to the cecum, identified by appendiceal orifice and ileocecal valve. The colonoscopy was performed without difficulty. The patient tolerated the procedure well. The quality of the bowel preparation was adequate. Findings: A diminutive polyp was found in the rectum. The polyp was hyperplastic. The polyp was removed with a cold snare. Resection and retrieval were complete. The recto-sigmoid colon, sigmoid colon, descending colon, transverse colon, ascending colon, cecum, appendiceal orifice and ileocecal valve appeared normal. Impression: - One diminutive polyp in the rectum, removed with a cold snare. Resected and retrieved. - The recto-sigmoid colon, sigmoid colon, descending colon, transverse colon, ascending colon, cecum, appendiceal orifice and ileocecal valve are normal. Recommendation: - Discharge patient to home (ambulatory). - Repeat colonoscopy in 5-10 years for surveillance based on pathology results. Procedure Code(s): --- Professional --- 09602, Colonoscopy, flexible; with removal of tumor(s), polyp(s), or other lesion(s) by snare technique Diagnosis Code(s): --- Professional --- Z12.11, Encounter for screening for malignant neoplasm of colon K62.1, Rectal polyp CPT copyright 2019 [employer]. All rights reserved. The codes documented in this report are preliminary and upon data coder operator review may be revised to meet current compliance requirements. Chapito Chávez MD Chapito Chávez Jr, MD 04/26/2021 10:38:20 AM Electronically signed by Chapito Chávez Jr, MD Number of Addenda: 0 Note Initiated On: 04/26/2021 10:16 AM Estimated Blood Loss: Estimated blood loss: none.
[2021-04-26] MEDS ORDERED: propofoL 200 MG/20 ML VIAL As Ordered ONE (10:42)
[2021-04-26] MEDS ORDERED: LIDOCAINE 2% 100MG/5ML SDV (FOR ANES.) As Ordered ONE (10:42)
[2021-04-26 10:55] VITALS: BP 124/61
== END 2021-04-26 10:58 | disposition home or self-care (01) ==
LOC: M OPP 09:07
PROVIDERS: ATTEND Surgery
DX: Z12.11 Encounter for screening for malignant neoplasm of colon (principal); K63.5 Polyp of colon; Z88.0 Allergy status to penicillin; Z88.8 Allergy status to other drugs, medicaments and biological substances

== ENCOUNTER → 2021-12-07 | Outpatient (CLI) | payer OTHER ==
[~2021-12-07] MED LIST changes: +NAPR220C14 PO; -NS 1,000 ML IV ONE; +ONDA-84; -ONDA8TAB10
== END ==
LOC: M RAD 12:22
PROVIDERS: ATTEND Pediatrics
DX: J32.0 Chronic maxillary sinusitis (principal)

== ENCOUNTER → 2022-01-09 | Outpatient (CLI) | payer OTHER | LOC: M WHC 14:05 | PROVIDERS: ATTEND Pediatrics | DX: Z12.31 Encounter for screening mammogram for malignant neoplasm of breast (principal) ==

== ENCOUNTER → 2022-01-25 | Outpatient (CLI) | payer OTHER | LOC: M WHC 10:48 | PROVIDERS: ATTEND Pediatrics | DX: Z12.31 Encounter for screening mammogram for malignant neoplasm of breast (principal); Z78.0 Asymptomatic menopausal state | CPT/HCPCS: 76642; 77065; G0279 ==

== ENCOUNTER → 2022-02-14 | Outpatient (CLI) | payer OTHER ==
[~2022-02-14] MED LIST changes: +ISOVUE-370 76% 100ML VIAL As Ordered ONE
== END ==
LOC: M RAD 16:14
PROVIDERS: ATTEND Otolaryngology
DX: R13.19 Other dysphagia (principal)
CPT/HCPCS: 70491; Q9967

== ENCOUNTER → 2022-02-19 | Outpatient (CLI) | payer OTHER ==
[~2022-02-19] MED LIST changes: +**SFHN** LIDOCAINE 1% MDV 20ML VIAL ONE; +**SFHN** SODIUM BICARBONATE 8.4% 50MEQ 50ML VIAL ONE; -ISOVUE-370 76% 100ML VIAL As Ordered ONE; +LIPI20TA PO; +NOXI1TAB PO
[2022-02-19 09:48] VITALS: BP 104/70
== END ==
LOC: M WHCPRO 08:48
PROVIDERS: ATTEND Surgery
DX: D24.2 Benign neoplasm of left breast (principal); R92.8 Other abnormal and inconclusive findings on diagnostic imaging of breast

== ENCOUNTER 2022-06-16 13:08 | Emergency (ER) | payer OTHER ==
[~2022-06-16] VITALS: Ht 162.6 cm; Wt 67.8 kg
[~2022-06-16 13:08] MED LIST changes: -**SFHN** LIDOCAINE 1% MDV 20ML VIAL ONE; -**SFHN** SODIUM BICARBONATE 8.4% 50MEQ 50ML VIAL ONE
[2022-06-16] MEDS ORDERED: traMADol 50 MG TAB PO ONE (13:50)
[2022-06-16] MEDS ORDERED: ACETAMINOPHEN TAB 650MG DOSE (2X325MG) PO ONE (13:50)
[2022-06-16] MEDS ORDERED: METH-1164 PO (15:18)
[2022-06-16] MEDS ORDERED: ULTR50TA8 PO (15:18)
[2022-06-16 15:28] VITALS: BP 114/55
== END 2022-06-16 15:29 | disposition home or self-care (01) ==
LOC: M ED 13:08
DX: S33.5XXA Sprain of ligaments of lumbar spine, initial encounter (principal); M51.36 Other intervertebral disc degeneration, lumbar region; F17.200 Nicotine dependence, unspecified, uncomplicated; X50.0XXA Overexertion from strenuous movement or load, initial encounter; Z88.0 Allergy status to penicillin; Z88.6 Allergy status to analgesic agent; Z91.030 Bee allergy status

== ENCOUNTER → 2022-08-30 | Outpatient (CLI) | payer OTHER ==
[~2022-08-30] MED LIST changes: +METH-1164 PO; +ULTR50TA8 PO
== END ==
LOC: M WUC 14:13
PROVIDERS: ATTEND Physician Assistant
DX: S00.33XA Contusion of nose, initial encounter (principal); X58.XXXA Exposure to other specified factors, initial encounter

== ENCOUNTER 2022-09-26 11:45 | Outpatient (RCR) | payer OTHER | END 2022-09-28 | LOC: M PT 11:45 | PROVIDERS: ATTEND Orthopaedic Surgery | DX: M47.27 Other spondylosis with radiculopathy, lumbosacral region (principal) ==

== ENCOUNTER 2022-10-24 14:27 | Outpatient (RCR) | payer OTHER | END 2022-10-29 | LOC: M PT 14:27 | PROVIDERS: ATTEND Orthopaedic Surgery | DX: M47.27 Other spondylosis with radiculopathy, lumbosacral region (principal) ==

== ENCOUNTER → 2022-10-25 | Outpatient (CLI) | payer OTHER | LOC: M PLARAD 10:54 | PROVIDERS: ATTEND Orthopaedic Surgery | DX: M47.27 Other spondylosis with radiculopathy, lumbosacral region (principal) ==

== ENCOUNTER 2022-11-07 12:46 | Outpatient (RCR) | payer OTHER | END 2022-11-26 | LOC: M PT 12:46 | PROVIDERS: ATTEND Orthopaedic Surgery | DX: M47.27 Other spondylosis with radiculopathy, lumbosacral region (principal) ==

== ENCOUNTER 2022-12-12 14:55 | Outpatient (RCR) | payer OTHER | END 2022-12-27 | LOC: CANPRERCR → M PT 14:55 | PROVIDERS: ATTEND Orthopaedic Surgery | DX: Z79.899 Other long term (current) drug therapy (principal) ==

== ENCOUNTER → 2022-12-18 | Outpatient (CLI) | payer OTHER | LOC: M WHC 12:40 | PROVIDERS: ATTEND Nurse Practitioner Women's Health | DX: R92.2 Inconclusive mammogram (principal) ==

== ENCOUNTER 2023-01-17 20:19 | Emergency (ER) | payer OTHER ==
[~2023-01-17] VITALS: Ht 162.6 cm; Wt 73.6 kg
[~2023-01-17 20:19] MED LIST changes: +FLUT50SP17; -FLUTISP
[2023-01-17] MEDS ORDERED: CYCL-707 (20:30)
[2023-01-18 00:58] LABS: BASO # 0.1 10^3/uL (0.0-0.2); BASO % 0.7 % (0.0-1.0); EOS # 0.3 10^3/uL (0.0-0.5); EOS % 2.6 % (0.0-3.0); HEMATOCRIT 38.5 % (36.0-47.0); HEMOGLOBIN 12.8 g/dl (12.0-15.5); LYMPH # 3.7 10^3/uL (1.5-5.0); LYMPH % 30.6 % (24.0-44.0); MEAN CORPUSCULAR HEMOGLOBIN 31.6 pg (27.0-33.0); MEAN CORPUSCULAR HGB CONC 33.2 g/dl (32.0-36.5); MEAN CORPUSCULAR VOLUME 95.1 fl (80.0-96.0); MONO # 1.1 10^3/uL (0.0-0.8); MONO % 9.5 % (2.0-8.0); NEUTROPHILS # 6.7 10^3/uL (1.5-8.5); NEUTROPHILS % 56.3 % (36.0-66.0); PLATELET COUNT, AUTOMATED 396 10^3/uL (150-450); RED BLOOD COUNT 4.05 10^6/uL (4.00-5.40)
[2023-01-18 01:04] LABS: URIC ACID 5.1 MG/DL (3.1-7.8)
[2023-01-18 01:08] LABS: C REACTIVE PROTEIN QUANTITATIV < 0.40 MG/DL (<1.0)
[2023-01-18 01:27] VITALS: BP 126/67
== END 2023-01-18 01:28 | disposition home or self-care (01) ==
LOC: M ED 20:19
DX: S63.91XA Sprain of unspecified part of right wrist and hand, initial encounter (principal); Y92.009 Unspecified place in unspecified non-institutional (private) residence as the place of occurrence of the external cause; X50.0XXA Overexertion from strenuous movement or load, initial encounter; R51.9 Headache, unspecified; E78.5 Hyperlipidemia, unspecified; J44.9 Chronic obstructive pulmonary disease, unspecified; Z90.49 Acquired absence of other specified parts of digestive tract; Z98.51 Tubal ligation status; Z88.0 Allergy status to penicillin; Z88.6 Allergy status to analgesic agent; Z91.030 Bee allergy status; Z79.899 Other long term (current) drug therapy

== ENCOUNTER → 2023-03-31 | Outpatient (REF) | payer OTHER ==
[~2023-03-31] MED LIST changes: +CYCL-707
[2023-03-31 16:35] LABS: BASO # 0.1 10^3/uL (0.0-0.2); BASO % 0.6 % (0.0-1.0); EOS # 0.3 10^3/uL (0.0-0.5); EOS % 2.9 % (0.0-3.0); HEMATOCRIT 41.2 % (36.0-47.0); HEMOGLOBIN 13.5 g/dl (12.0-15.5); LYMPH # 2.9 10^3/uL (1.5-5.0); LYMPH % 29.7 % (24.0-44.0); MEAN CORPUSCULAR HEMOGLOBIN 31.2 pg (27.0-33.0); MEAN CORPUSCULAR HGB CONC 32.8 g/dl (32.0-36.5); MEAN CORPUSCULAR VOLUME 95.2 fl (80.0-96.0); MONO % 10.3 % (2.0-8.0); NEUTROPHILS # 5.5 10^3/uL (1.5-8.5); NEUTROPHILS % 56.3 % (36.0-66.0); PLATELET COUNT, AUTOMATED 411 10^3/uL (150-450); RED BLOOD COUNT 4.33 10^6/uL (4.00-5.40); WHITE BLOOD COUNT 9.8 10^3/uL (4.0-10.0)
[2023-03-31 16:44] LABS: ALBUMIN 3.9 G/DL (3.2-5.2); ALKALINE PHOSPHATASE 84 U/L (46-116); ALT/SGPT 40 U/L (7.0-40); AST/SGOT < 8 U/L (<34); BILIRUBIN,TOTAL 0.5 MG/DL (0.3-1.2); BLOOD UREA NITROGEN 9 MG/DL (9-23); CARBON DIOXIDE LEVEL 26 MMOL/L (20-31); CHLORIDE LEVEL 109 MMOL/L (98-107); CHOLESTEROL LEVEL 114 MG/DL (<200); CHOLESTEROL RISK RATIO 3.19 (<5); CREATININE FOR GFR 0.58 MG/DL (0.55-1.30); GLOMERULAR FILTRATION RATE > 60.0 (>51); GLUCOSE, FASTING 99 MG/DL (60-100); HDL CHOLESTEROL 35.7 MG/DL (>40); LDL CHOLESTEROL 58.9 MG/DL (<100); NON-HDL-C 78.3 MG/DL; POTASSIUM SERUM 4.4 MMOL/L (3.5-5.1); SODIUM LEVEL 141 MMOL/L (136-145); TRIGLYCERIDES LEVEL 97 MG/DL (<150)
[2023-03-31 16:46] LABS: THYROID STIMULATING HORMONE 1.378 uIU/ML (0.55-4.78); VITAMIN B12 LEVEL 261 PG/ML (211-911)
== END ==
LOC: M LAB REF 16:14
PROVIDERS: ATTEND Pediatrics
DX: E78.5 Hyperlipidemia, unspecified (principal); R41.3 Other amnesia; J44.9 Chronic obstructive pulmonary disease, unspecified

== ENCOUNTER → 2023-04-10 | Outpatient (REF) | payer OTHER ==
[2023-04-10 21:04] LABS: APPEARANCE, URINE CLEAR (CLEAR); BACTERIA, URINE AUTO NEGATIVE (NEGATIVE); BILIRUBIN, URINE AUTO NEGATIVE (NEGATIVE); BLOOD, URINE BLOOD 2+ (NEGATIVE); COLOR, URINE STRAW (YELLOW); GLUCOSE, URINE (UA) AUTO NEGATIVE (NEGATIVE); KETONE, URINE AUTO NEGATIVE (NEGATIVE); LEUKOCYTE ESTERASE, URINE AUTO 3+ (NEGATIVE); NITRITE, URINE AUTO NEGATIVE (NEGATIVE); PROTEIN, URINE AUTO NEGATIVE (NEGATIVE); RBC, URINE AUTO 1 /HPF (0-3); SPECIFIC GRAVITY URINE AUTO 1.005 (1.002-1.035); SQUAMOUS EPITHELIAL CELL UR AU 0 /HPF (0-6); UROBILINOGEN, URINE AUTO 0.2 mg/dL (0.0-2.0); WBC, URINE AUTO 4 /HPF (0-3)
== END ==
LOC: M LAB REF 20:48
PROVIDERS: ATTEND Physician Assistant
DX: N39.0 Urinary tract infection, site not specified (principal)

== ENCOUNTER → 2023-10-31 | Outpatient (REF) | payer OTHER ==
[~2023-10-31] MED LIST changes: -FLUT50SP17; +FLUTISP
[2023-10-31 13:29] LABS: BASO # 0.1 10^3/uL (0.0-0.2); BASO % 0.5 % (0.0-1.0); EOS # 0.2 10^3/uL (0.0-0.5); EOS % 1.6 % (0.0-3.0); HEMATOCRIT 40.2 % (36.0-47.0); HEMOGLOBIN 13.1 g/dl (12.0-15.5); LYMPH # 2.4 10^3/uL (1.5-5.0); LYMPH % 24.2 % (24.0-44.0); MEAN CORPUSCULAR HEMOGLOBIN 31.2 pg (27.0-33.0); MEAN CORPUSCULAR HGB CONC 32.6 g/dl (32.0-36.5); MEAN CORPUSCULAR VOLUME 95.7 fl (80.0-96.0); NEUTROPHILS # 6.2 10^3/uL (1.5-8.5); NEUTROPHILS % 63.5 % (36.0-66.0); PLATELET COUNT, AUTOMATED 436 10^3/uL (150-450); WHITE BLOOD COUNT 9.7 10^3/uL (4.0-10.0)
[2023-10-31 13:59] LABS: ALBUMIN 3.7 G/DL (3.2-5.2); ALKALINE PHOSPHATASE 82 U/L (46-116); ALT/SGPT 20 U/L (7.0-40); AST/SGOT 14 U/L (<34); BILIRUBIN,TOTAL 0.3 MG/DL (0.3-1.2); BLOOD UREA NITROGEN 8 MG/DL (9-23); CARBON DIOXIDE LEVEL 27 MMOL/L (20-31); CHLORIDE LEVEL 108 MMOL/L (98-107); CHOLESTEROL LEVEL 200 MG/DL (<200); CREATININE FOR GFR 0.56 MG/DL (0.55-1.30); GLOMERULAR FILTRATION RATE > 60.0 (>51); GLUCOSE, FASTING 91 MG/DL (60-100); HDL CHOLESTEROL 37.7 MG/DL (>40); LDL CHOLESTEROL 137.5 MG/DL (<100); NON-HDL-C 162.3 MG/DL; POTASSIUM SERUM 4.6 MMOL/L (3.5-5.1); SODIUM LEVEL 141 MMOL/L (136-145); THYROID STIMULATING HORMONE 0.823 uIU/ML (0.55-4.78); TRIGLYCERIDES LEVEL 124 MG/DL (<150)
== END ==
LOC: M LAB REF 12:24
PROVIDERS: ATTEND Pediatrics
DX: E78.5 Hyperlipidemia, unspecified (principal); J44.9 Chronic obstructive pulmonary disease, unspecified

== ENCOUNTER → 2024-02-20 | Outpatient (CLI) | payer OTHER | LOC: M RAD 08:23 | PROVIDERS: ATTEND Pediatrics | DX: Z12.2 Encounter for screening for malignant neoplasm of respiratory organs (principal); Z87.891 Personal history of nicotine dependence ==

== ENCOUNTER → 2024-03-10 | Outpatient (REF) | payer OTHER ==
[2024-03-10 17:13] LABS: BASO % 0.3 % (0.0-1.0); EOS # 0.2 10^3/uL (0.0-0.5); EOS % 1.5 % (0.0-3.0); HEMATOCRIT 40.5 % (36.0-47.0); HEMOGLOBIN 13.4 g/dl (12.0-15.5); LYMPH # 3.2 10^3/uL (1.5-5.0); LYMPH % 27.4 % (24.0-44.0); MEAN CORPUSCULAR HEMOGLOBIN 32.2 pg (27.0-33.0); MEAN CORPUSCULAR HGB CONC 33.1 g/dl (32.0-36.5); MEAN CORPUSCULAR VOLUME 97.4 fl (80.0-96.0); MONO # 1.2 10^3/uL (0.0-0.8); MONO % 9.9 % (2.0-8.0); NEUTROPHILS # 7.1 10^3/uL (1.5-8.5); NEUTROPHILS % 60.6 % (36.0-66.0); PLATELET COUNT, AUTOMATED 440 10^3/uL (150-450); RED BLOOD COUNT 4.16 10^6/uL (4.00-5.40); WHITE BLOOD COUNT 11.7 10^3/uL (4.0-10.0)
[2024-03-10 17:33] LABS: TOTAL 25(OH) VITAMIN D 24.4 NG/ML (20.0-100.0)
[2024-03-10 17:35] LABS: CHOLESTEROL RISK RATIO 4.23 (<5); HDL CHOLESTEROL 36.8 MG/DL (>40); NON-HDL-C 119.2 MG/DL
== END ==
LOC: M LAB REF 16:35
PROVIDERS: ATTEND Pediatrics
DX: E78.5 Hyperlipidemia, unspecified (principal); J44.9 Chronic obstructive pulmonary disease, unspecified; E55.9 Vitamin D deficiency, unspecified; E53.8 Deficiency of other specified B group vitamins

== ENCOUNTER → 2024-06-22 | Outpatient (REF) | payer OTHER | LOC: M LAB REF 16:38 | PROVIDERS: ATTEND Pediatrics | DX: E53.8 Deficiency of other specified B group vitamins (principal) ==

== ENCOUNTER → 2024-09-03 | Outpatient (REF) | payer OTHER ==
[2024-09-03 14:11] LABS: BASO # 0.1 10^3/uL (0.0-0.2); BASO % 0.6 % (0.0-1.0); EOS # 0.2 10^3/uL (0.0-0.5); EOS % 2.4 % (0.0-3.0); HEMATOCRIT 40.7 % (36.0-47.0); HEMOGLOBIN 13.3 g/dl (12.0-15.5); LYMPH # 2.4 10^3/uL (1.5-5.0); LYMPH % 24.2 % (24.0-44.0); MEAN CORPUSCULAR HEMOGLOBIN 31.2 pg (27.0-33.0); MEAN CORPUSCULAR HGB CONC 32.7 g/dl (32.0-36.5); MEAN CORPUSCULAR VOLUME 95.5 fl (80.0-96.0); MONO # 0.9 10^3/uL (0.0-0.8); MONO % 9.4 % (2.0-8.0); NEUTROPHILS # 6.1 10^3/uL (1.5-8.5); NEUTROPHILS % 62.9 % (36.0-66.0); PLATELET COUNT, AUTOMATED 432 10^3/uL (150-450); RED BLOOD COUNT 4.26 10^6/uL (4.00-5.40); WHITE BLOOD COUNT 9.7 10^3/uL (4.0-10.0)
[2024-09-03 14:15] LABS: PERCENT SATURATION 16.1 % (13.2-45.0)
[2024-09-03 14:17] LABS: THYROID STIMULATING HORMONE 0.865 uIU/ML (0.55-4.78)
== END ==
LOC: M LAB REF 12:34
PROVIDERS: ATTEND Pediatrics
DX: R53.83 Other fatigue (principal)

== ENCOUNTER → 2025-04-04 | Outpatient (CLI) | payer MEDICARE, MEDICAID | LOC: M WUC 11:51 | PROVIDERS: ATTEND Nurse Practitioner Family | DX: M25.561 Pain in right knee (principal) ==

== ENCOUNTER 2025-05-09 11:05 | Outpatient (RCR) | payer MEDICARE, MEDICAID | END 2025-05-29 | LOC: M PT 11:05 | PROVIDERS: ATTEND Physician Assistant | DX: M25.561 Pain in right knee (principal) ==

== ENCOUNTER → 2025-07-01 | Outpatient (REF) | payer MEDICARE, MEDICAID ==
[2025-07-01 15:03] LABS: BASO # 0.0 10^3/uL (0.0-0.2); BASO % 0.4 % (0.0-1.0); CHOLESTEROL LEVEL 110.0 MG/DL (<200); CHOLESTEROL RISK RATIO 3.08 (<5); EOS # 0.2 10^3/uL (0.0-0.5); EOS % 2.2 % (0.0-3.0); IRON (FE) 80.0 UG/DL (50-170); LDL CHOLESTEROL 59.1 MG/DL (<100); LYMPH # 2.6 10^3/uL (1.5-5.0); LYMPH % 28.2 % (24.0-44.0); MONO # 0.9 10^3/uL (0.0-0.8); MONO % 9.7 % (2.0-8.0); NEUTROPHILS # 5.4 10^3/uL (1.5-8.5); NEUTROPHILS % 59.3 % (36.0-66.0); NON-HDL-C 74.3 MG/DL; PERCENT SATURATION 27.8 % (13.2-45.0); PLATELET COUNT, AUTOMATED 419 10^3/uL (150-450); TRIGLYCERIDES LEVEL 76.0 MG/DL (<150)
[2025-07-01 15:05] LABS: VITAMIN B12 LEVEL 837.0 PG/ML (211-911)
== END ==
LOC: M LAB REF 14:31
PROVIDERS: ATTEND Pediatrics
DX: E78.5 Hyperlipidemia, unspecified (principal); E61.1 Iron deficiency; E53.8 Deficiency of other specified B group vitamins

== ENCOUNTER → 2025-08-17 | Outpatient (REF) | payer MEDICARE, MEDICAID | LOC: M LAB REF 16:09 | PROVIDERS: ATTEND Pediatrics | DX: M85.89 Other specified disorders of bone density and structure, multiple sites (principal); Z79.899 Other long term (current) drug therapy ==